=== PATIENT | female | born 1970 | race Caucasian/White ===

== ENCOUNTER → 2021-05-13 | Outpatient (CLI) | payer BC | LOC: M LABSMTC 13:45 | PROVIDERS: ATTEND Anesthesiology | DX: Z01.812 Encounter for preprocedural laboratory examination (principal); Z20.822 Contact with and (suspected) exposure to COVID-19 ==

== ENCOUNTER 2021-05-18 11:57 | Day surgery (SDC) | payer BC ==
[~2021-05-18] VITALS: Ht 167.6 cm; Wt 85.7 kg
[~2021-05-18 11:57] MED LIST: BUPR150T12 PO; CYCL5TAB PO; DESL1TAB3 PO; DICL1GEL3 TOP; DOXY-350 PO; ERGO500029 PO; HYDR200T3 PO; LISI10TA22 PO; NS 1,000 ML IV ONE; PANT40TA29 PO; PREG100C PO; SUCR1ORA2 PO
[2021-05-18] MEDS ORDERED: propofoL 200 MG/20 ML VIAL As Ordered ONE (13:50)
[2021-05-18] MEDS ORDERED: LIDOCAINE 2% 100MG/5ML SDV (FOR ANES.) As Ordered ONE (13:50)
[2021-05-18 15:00] VITALS: BP 161/81
== END 2021-05-18 15:00 | disposition home or self-care (01) ==
LOC: M OPP 11:57
PROVIDERS: ATTEND Internal Medicine Gastroenterology
DX: K44.9 Diaphragmatic hernia without obstruction or gangrene (principal); K21.00 Gastro-esophageal reflux disease with esophagitis, without bleeding; K29.70 Gastritis, unspecified, without bleeding; K31.7 Polyp of stomach and duodenum; R13.10 Dysphagia, unspecified; R12 Heartburn; Z79.899 Other long term (current) drug therapy; Z88.5 Allergy status to narcotic agent; Z88.8 Allergy status to other drugs, medicaments and biological substances; Z91.048 Other nonmedicinal substance allergy status

== ENCOUNTER → 2021-12-19 | Outpatient (CLI) | payer BC ==
[~2021-12-19] MED LIST changes: -NS 1,000 ML IV ONE
== END ==
LOC: M LABSMTC 10:55
PROVIDERS: ATTEND Internal Medicine Gastroenterology
DX: Z20.828 Contact with and (suspected) exposure to other viral communicable diseases (principal); Z11.59 Encounter for screening for other viral diseases

== ENCOUNTER → 2022-04-07 | Outpatient (CLI) | payer BC ==
[~2022-04-07] MED LIST changes: -DOXY-350 PO; +DOXY-444 PO
== END ==
LOC: M LABSMTC 09:15
PROVIDERS: ATTEND Anesthesiology
DX: Z01.812 Encounter for preprocedural laboratory examination (principal); Z11.52 Encounter for screening for COVID-19

== ENCOUNTER 2022-04-12 10:03 | Day surgery (SDC) | payer BC ==
[~2022-04-12] VITALS: Ht 167.6 cm; Wt 86.6 kg
[~2022-04-12 10:03] MED LIST changes: +NS 1,000 ML IV ONE
[2022-04-12] MEDS ORDERED: propofoL 200 MG/20 ML VIAL As Ordered ONE ×3 (11:48→12:09)
[2022-04-12] MEDS ORDERED: LIDOCAINE 2% 100MG/5ML SDV (FOR ANES.) As Ordered ONE (11:48)
[2022-04-12] MEDS ORDERED: MIDAZOLAM INJ 2MG/2ML VIAL As Ordered ONE (11:48)
[2022-04-12 12:51] VITALS: BP 142/78
== END 2022-04-12 13:05 | disposition home or self-care (01) ==
LOC: M OPP 10:03
PROVIDERS: ATTEND Internal Medicine Gastroenterology
DX: Z12.11 Encounter for screening for malignant neoplasm of colon (principal); D12.3 Benign neoplasm of transverse colon; K57.30 Diverticulosis of large intestine without perforation or abscess without bleeding; K64.4 Residual hemorrhoidal skin tags; K64.8 Other hemorrhoids; K22.4 Dyskinesia of esophagus; K22.89 Other specified disease of esophagus; K22.2 Esophageal obstruction; Z79.1 Long term (current) use of non-steroidal anti-inflammatories (NSAID); Z79.899 Other long term (current) drug therapy; Z88.5 Allergy status to narcotic agent; Z88.6 Allergy status to analgesic agent; Z88.8 Allergy status to other drugs, medicaments and biological substances; Z91.048 Other nonmedicinal substance allergy status; E28.2 Polycystic ovarian syndrome; I10 Essential (primary) hypertension; M47.817 Spondylosis without myelopathy or radiculopathy, lumbosacral region; M79.7 Fibromyalgia; F41.9 Anxiety disorder, unspecified
CPT/HCPCS: 43249; 45385; 88305; J2250

== ENCOUNTER → 2023-09-19 | Outpatient (REF) | payer OTHER ==
[~2023-09-19] MED LIST changes: +DICL100G10 TOP; -DICL1GEL3 TOP; +DOXY-440 PO; -DOXY-444 PO; -HYDR200T3 PO; +HYDR200T46 PO; -NS 1,000 ML IV ONE; -PREG100C PO; +PREG100C2 PO
== END ==
LOC: M LAB REF 10:55
PROVIDERS: ATTEND Physician Assistant Medical
DX: R19.7 Diarrhea, unspecified (principal)

== ENCOUNTER → 2023-09-20 | Outpatient (CLI) | payer OTHER ==
[2023-09-20 11:01] LABS: FREE T4 1.12 NG/DL (0.89-1.76); THYROID STIMULATING HORMONE 1.75 uIU/ML (0.55-4.78)
== END ==
LOC: M LAB 09:59
PROVIDERS: ATTEND Physician Assistant Medical
DX: R19.7 Diarrhea, unspecified (principal)

== ENCOUNTER 2023-10-05 10:56 | Day surgery (SDC) | payer OTHER ==
[~2023-10-05] VITALS: Ht 167.6 cm; Wt 85.7 kg
[~2023-10-05 10:56] MED LIST changes: +BUSP10TA79 PO; +DOXY100C3 PO; +FLUTISP; +MONT10TA97 PO; +NORE5TAB PO
[2023-10-05] MEDS: NS 1,000 ML IV ONE (12:01)
[2023-10-05] MEDS ORDERED: fentaNYL 100 MCG/2 ML INJECTION As Ordered ONE (13:13)
[2023-10-05] MEDS ORDERED: LIDOCAINE 2% 100MG/5ML SDV (FOR ANES.) As Ordered ONE (13:13)
[2023-10-05] MEDS ORDERED: propofoL 500 MG/50 ML VIAL As Ordered ONE (13:14)
[2023-10-05 14:43] VITALS: TEMP 97.4
[2023-10-05 15:00] VITALS: BP 132/67; O2SAT 99
== END 2023-10-05 15:13 | disposition home or self-care (01) ==
LOC: M OPP 10:56
PROVIDERS: ATTEND Internal Medicine Gastroenterology
DX: Z12.11 Encounter for screening for malignant neoplasm of colon (principal); Z86.010 Personal history of colon polyps; D12.5 Benign neoplasm of sigmoid colon; K63.5 Polyp of colon; K64.8 Other hemorrhoids; K22.2 Esophageal obstruction; K44.9 Diaphragmatic hernia without obstruction or gangrene; K31.7 Polyp of stomach and duodenum; Z79.1 Long term (current) use of non-steroidal anti-inflammatories (NSAID); Z79.2 Long term (current) use of antibiotics; Z79.51 Long term (current) use of inhaled steroids; Z79.899 Other long term (current) drug therapy; Z88.5 Allergy status to narcotic agent; Z88.6 Allergy status to analgesic agent; Z91.048 Other nonmedicinal substance allergy status